=== PATIENT | female | born 1975 | race Caucasian/White ===

== ENCOUNTER 2019-01-18 09:28 | Emergency (ER) | payer OTHER, BC ==
[~2019-01-18] VITALS: Ht 157.5 cm; Wt 153.3 kg
[2019-01-18 09:38] VITALS: Ht 157.5 cm; Wt 153.3 kg
[2019-01-18 11:11] LABS: BASOPHIL % 0.3 % (0-2); PLATELET COUNT 273 x10^3mcL (130-400)
[2019-01-18 11:13] LABS: RED CELL DISTRIBUTION WIDTH 15.6 % (11.5-14.5)
[2019-01-18 11:15] LABS: CALCIUM 8.9 mg/dL (8.5-10.1); CARBON DIOXIDE 25.7 mmol/L (21-32); CHLORIDE SERUM 104 mmol/L (98-107); CREATININE SERUM 0.9 mg/dL (0.6-1.0); GFR1 > 60 mL/min; GLUCOSE SERUM 100 mg/dL (74-106); POTASSIUM SERUM 3.6 mmol/L (3.5-5.1); SODIUM SERUM 138 mmol/L (136-145)
[2019-01-18 11:28] LABS: ALKALINE PHOSPHATASE 85 U/L (46-116); ALT/SGPT 40 U/L (14-59); AST/SGOT 20 U/L (15-37); BILIRUBIN TOTAL 0.36 mg/dL (0.20-1.00); LIPASE 118 IU/L (73-393); TOTAL PROTEIN, SERUM 7.7 g/dL (6.4-8.2)
[2019-01-18 11:30] LABS: ALBUMIN 3.3 g/dL (3.4-5.0)
[2019-01-18 14:17] VITALS: BP 125/87
== END 2019-01-18 14:17 | disposition home or self-care (01) ==
LOC: ED 09:28
PROVIDERS: Emergency Medicine
DX: I88.0 Nonspecific mesenteric lymphadenitis (principal); E86.0 Dehydration; R10.12 Left upper quadrant pain; Z88.5 Allergy status to narcotic agent
CPT/HCPCS: 87046; 87046-59; J1885; J2405; J7030